=== PATIENT | male | born 1955 | race Caucasian/White ===

== ENCOUNTER 2018-06-27 22:54 | Emergency (ER) | payer OTHER ==
[2018-06-27] MEDS ORDERED: HYDROcodone/Acetaminophen 10/325 mg Tablet ONE (23:11)
[2018-06-27] MEDS ORDERED: Adacel (T-DAP) 0.5 ML VIAL ONE (23:12)
[2018-06-27] MEDS ORDERED: Ondansetron ODT 4 MG TAB ONE (23:12)
[2018-06-27 23:29] LABS: Hemoglobin 15.4 g/dL (14.0-18.0); Mean Corpuscular HGB CONC 34.5 g/dL (32.0-36.0); Mean Corpuscular Hemoglobin 32.1 pg (27.0-31.0); Mean Corpuscular Volume 93.1 fL (78.0-98.0); Mean Platelet Volume 8.3 fL (7.4-10.4); Platelet Count 237 thou/uL (130-400); RBC Distribution Width 12.2 % (11.5-14.5); Red Blood Cell (RBC) Count 4.81 mill/uL (4.70-6.10); White Blood Cell (WBC) Count 6.6 thou/uL (4.8-10.8)
[2018-06-27 23:36] LABS: PTT 32.3 SEC (22.9-36.1)
[2018-06-27 23:45] LABS: Band 4 % (5-11); Eosinophils 4 % (0-10); Lymphocytes 46 % (21-51); MDiff Complete? YES; Monocytes 9 % (0-10); Neutrophil 37 % (42-75)
[2018-06-27 23:49] LABS: ALT (SGPT) 27 U/L (8-55); AST (SGOT) 17 U/L (5-34); Albumin 4.4 g/dL (3.4-4.8); Alkaline Phosphatase 76 U/L (40-150); Anion Gap 13 mmol/L (10-20); BUN (Urea Nitrogen) 19 mg/dL (8.4-25.7); Bilirubin, Total 1.1 mg/dL (0.2-1.2); Calc. Creatinine Clearance 0 mL/min (70-130); Calcium 9.5 mg/dL (7.8-10.44); Carbon Dioxide 23 mmol/L (23-31); Chloride 105 mmol/L (98-107); Estimated GFR-MDRD 70; Globulin 3.1 g/dL (2.4-3.5); Glucose 146 mg/dL (80-115); Potassium 3.9 mmol/L (3.5-5.1); Protein, Total 7.5 g/dL (5.8-8.1); Sodium 137 mmol/L (136-145)
[2018-06-28] MEDS ORDERED: HYDROcodone/Acetaminophen 5/325 mg Tablet ONE (01:24)
[2018-06-28] MEDS ORDERED: HYDROcodone/Acetaminophen 10/325 mg Tablet ONE (01:25)
== END 2018-06-28 01:27 | disposition home or self-care (01) ==
LOC: ERS 22:54
DX: T63.061A Toxic effect of venom of other North and South American snake, accidental (unintentional), initial encounter (principal)
CPT/HCPCS: 80053; 85025; 85384; 85730; 90471; 90715; 94760; Q0162

== ENCOUNTER 2018-08-17 09:25 | Outpatient (CLI) | payer OTHER ==
--- NOTE | 2018-08-17 11:55 | ULT ---
BILATERAL CAROTID DUPLEX ULTRASOUND: HISTORY: Near syncope. TECHNIQUE: Wood-scale ultrasound with color-flow and spectral Doppler imaging of the extracranial carotid artery systems is performed bilaterally. FINDINGS: No significant plaque formation is seen. The peak systolic velocity in the right ICA measures 94 cm per second with an end-diastolic velocity of 20 cm per second and a systolic ratio of 1.04. The peak systolic velocity in the left ICA measures 67 cm per second with an end-diastolic velocity o f 30 cm per second and a systolic ratio of 0.72. Flow in both vertebral arteries remains antegrade. IMPRESSION: No evidence of hemodynamically significant stenosis. POS: [facility]
== END 2018-08-17 09:26 | disposition home or self-care (01) ==
LOC: BICULT 09:25
PROVIDERS: ATTEND Obstetrics & Gynecology
DX: R55 Syncope and collapse (principal)
CPT/HCPCS: 93880

== ENCOUNTER 2018-09-29 09:38 | Outpatient (CLI) | payer OTHER ==
--- NOTE | 2018-09-29 11:22 | RAD ---
SAM VIEW: INDICATION: Clearance for MRI. Question metal in eyes. FINDINGS: No metallic foreign body identified. The paranasal sinuses are clear. IMPRESSION: The patient is cleared for MRI exam. POS: [facility]
--- NOTE | 2018-09-29 13:39 | MRI ---
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 FINDINGS: There is no acute territorial infarction, mass effect, midline shift, or ventriculomegaly. There is left frontal encephalomalacia. No pathologic intraaxial enhancement. Thin section imaging of the in ternal auditory canals is performed, which reveals no evidence of mass or pathologic enhancement. There are remote right cerebellar hemispheric lacunar infarctions. There is minimal chronic ischemic disease of the cerebral white matter. IMPRESSION: 1. No acute territorial infarction or intracranial mass effect. 2. 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 3. No mass or pathologic enhancement of either 7th or 8th cranial nerve complex. POS: [facility]
== END 2018-09-29 09:39 | disposition home or self-care (01) ==
LOC: BICMRI 09:38
PROVIDERS: ATTEND Specialist
DX: H90.5 Unspecified sensorineural hearing loss (principal); G93.89 Other specified disorders of brain; Z86.73 Personal history of transient ischemic attack (TIA), and cerebral infarction without residual deficits
CPT/HCPCS: 70210; 70553; 82565